=== PATIENT | male | born 1980 | race Caucasian/White ===

== ENCOUNTER 2021-03-04 21:11 | Emergency (ER) | payer OTHER ==
[2021-03-04 21:51] LABS: BASOPHIL 0.3 % (0-2); EOSINOPHIL 0.1 % (0-5); HCT 41.9 % (42.0-52.0); HGB 14.5 g/dl (13.2-18.0); LYMPHOCYTE 13.2 % (15-48); MCH 28.7 pg (25.0-31.0); MCHC 34.6 g/dL (32.0-36.0); MONOCYTE 10.3 % (0-12); NEUTROPHIL 75.8 % (41-80); NRBC 0; PLT 225 K/uL (150-400); RBC 5.05 M/uL (4.70-6.00); RDW 13.8 % (11.5-14.0); WBC 7.6 K/uL (4.0-10.5)
[2021-03-04 22:13] LABS: ALBUMIN 4.2 g/dL (3.4-5.0); ALKALINE PHOSHATASE 63 U/L (46-116); ALT 16 U/L (16-63); AST 12 U/L (15-37); BUN 11 mg/dL (7-18); BUN/CREAT RATIO (CALC) 11.5 RATIO; CHLORIDE 102 mmol/L (98-107); CO2 (BICARBONATE) 29 mmol/L (21-32); CREATININE 0.96 mg/dL (0.67-1.17); GLOBULIN (CALCULATION) 3.3 g/dL; GLUCOSE 124 mg/dL (74-106); POTASSIUM 3.7 mmol/L (3.5-5.1); TOTAL PROTEIN 7.5 g/dL (6.4-8.2)
[2021-03-04 22:21] LABS: ACETAMINOPHEN (TYLENOL) < 2.0 ug/mL (10.0-30.0); C-REACTIVE PROTEIN < 0.20 mg/dL (<=0.90)
[2021-03-05 03:09] LABS: BILIRUBIN NEGATIVE (NEGATIVE); BLOOD 3+ Ery/uL (NEGATIVE); CLARITY CLEAR (CLEAR); COLOR YELLOW (YELLOW); GLUCOSE (U) NORMAL (NORMAL); LEUKOCYTES 1+ Leu/uL (NEGATIVE); NITRITE NEGATIVE (NEGATIVE); PROTEIN NEGATIVE (NEGATIVE); SPECIFIC GRAVITY 1.025 (1.001-1.030); UROBILINOGEN 0.2 mg/dL (0.2-1.0)
[2021-03-05 03:14] LABS: MARIJUANA (THC) POSITIVE (NEGATIVE)
[2021-03-05 03:15] LABS: AMPHETAMINES NEGATIVE (NEGATIVE); BARBITURATES NEGATIVE (NEGATIVE); ECSTASY (MDMA) NEGATIVE (NEGATIVE); METHADONE NEGATIVE (NEGATIVE); OPIATES NEGATIVE (NEGATIVE); OXYCODONE NEGATIVE (NEGATIVE)
[2021-03-05 03:18] LABS: BACTERIA 1+; SPERM PRESENT; URINARY RBC 20-50; URINARY WBC 20-50
== END 2021-03-05 12:07 ==
LOC: FER 21:11
PROVIDERS: Emergency Medicine Emergency Medical Services
DX: N39.0 Urinary tract infection, site not specified (principal); F19.10 Other psychoactive substance abuse, uncomplicated; I45.10 Unspecified right bundle-branch block; F31.9 Bipolar disorder, unspecified; Z79.899 Other long term (current) drug therapy; Z20.822 Contact with and (suspected) exposure to COVID-19
CPT/HCPCS: 36415; 70450; 71045; 72128; 72131; 80053; 80305; 81001; 82550; 84484; 85025; 86140; 93005; G0480; J0696; J2060; J7030; U0002